=== PATIENT | female | born 1990 | race Caucasian/White ===

== ENCOUNTER 2021-10-07 23:05 | Emergency (ER) | payer OTHER, SELFPAY ==
[2021-10-07 23:49] VITALS: BP 139/89; PULSE 76; RESP 18; TEMP 36.6; O2SAT 99
--- NOTE | 2021-10-08 00:36 | DI.RAD.S_ITS ---
PROCEDURE: XR WRIST LT 2V INDICATIONS: known fx tingling thumb and index TECHNIQUE: Three views of the left wrist were obtained in overlying fiberglass cast, limiting assessment bony detail. COMPARISON: None. FINDINGS: Bones: Distal radial and ulnar styloid healing fractures are in noted. Evaluation is limited by overlying fiberglass cast. Scaphoid view: None obtained Soft tissues: No suspicious soft tissue calcifications. IMPRESSION: Healing distal radial ulnar styloid fractures. Evaluation is limited by overlying fiberglass cast Dictated by: Brian Núñez M.D. on 10/08/2021 at 1:17 Approved by: Brian Núñez M.D. on 10/08/2021 at 1:22
--- NOTE | 2021-10-08 00:36 | ED.UPPEXIN ---
HPI - Extremity Injury (Upper) General Chief Complaint: Extremity Injury, Upper Stated Complaint: hurt left wrist - tingling/numbness Time Seen by Provider: 10/08/21 00:27 Source: patient Mode of arrival: Ambulatory Limitations: no limitations History of Present Illness HPI narrative: Patient is a 31-year-old female who has a known recent left wrist fracture. She lives in [place] she fell a couple of weeks ago she has been seen by Orthopedics it has been casted. She even saw orthopedics prior to her travel they bivalved th cast. She states that for 1 minute head to hours now she has had some numbness and tingling in her left thumb and index finger. She has pain medication at. The cast actually does not feel too tight she is able to move fingers. He is worried that perhaps a bone movement. She has not had any injury. Review of Systems Review of Systems Narrative: GENERAL: Denies chills,fever HEENT: Denies throat pain RESPIRATORY: Denies dyspnea, cough, wheezing CARDIOVASCULAR: Denies chest pain, palpitations GASTROINTESTINAL: Denies nausea, vomiting MUSCULOSKELETAL: See HPI SKIN: No rash, no laceration, no pruritus NEUROLOGIC: Denies weakness, dizziness, headache, numbness 8 point review of systems is negative except for those stated above and HPI Patient History Social History Smoking Status: Never smoker Smoking Status: Never smoker alcohol intake frequency: a few times a month Substance Use Type: does not use Exam Initial Vital Signs Initial Vital Signs: Vital Signs Temperature 97.9 F 10/07/21 23:49 Pulse Rate 76 10/07/21 23:49 Respiratory Rate 18 10/07/21 23:49 Blood Pressure 139/89 10/07/21 23:49 Pulse Oximetry 99 10/07/21 23:49 GENERAL: Well-appearing, well-nourished and in no acute distress. CARDIOVASCULAR: peripheral pulses in tact, cap refill <2 sec RESPIRATORY: No respiratory distress, speaks in full sentences without difficulty EXTREMITIES: Normal range of motion, no clubbing or edema. Neurovascularly intact Left wrist cast is place it is bivalved it is loose I am able to stick my fingers in 8 she is able to move her finger is cap refill less than 2 seconds. NEUROLOGICAL: Cranial nerves II through XII grossly intact. Normal gait and speech. SKIN: Warm, dry, no petechiae, no rashes or lesions. Course Orders Ordered: ED Orders 10/08/21 00:36 XR wrist LT 2V Stat Vital Signs Vital signs: Vital Signs - 8 hr 10/07/21 23:49 Temperature 97.9 F Pulse Rate 76 Respiratory Rate 18 Blood Pressure 139/89 Pulse Oximetry 99 [facility] - Extremity Injury (Upper) Imaging Data Extremity x-ray #1: Radiologist's Impression: PROCEDURE:? XR WRIST LT 2V ? INDICATIONS: known fx tingling thumb and index ? TECHNIQUE:? Three views of the left wrist were obtained in overlying fiberglass cast, limiting assessment bony detail. ? COMPARISON:? None. ? FINDINGS:? ? Bones:? Distal radial and ulnar styloid healing fractures are in noted.? Evaluation is limited by overlying fiberglass cast. ? Scaphoid view:? None obtained ? Soft tissues:? No suspicious soft tissue calcifications.? ? IMPRESSION:? ? Healing distal radial ulnar styloid fractures.? Evaluation is limited by overlying fiberglass cast ? ? Dictated by: Brian Núñez M.D. on 10/08/2021 at 1:17 ? ? Approved by: Brian Núñez M.D. on 10/08/2021 at 1:22 ? [facility] Narrative Medical decision making narrative: Patient's cast is not tight. She certainly has no signs of compartment syndrome. She is able to move finger she has good cap refill there is no significant swelling. I am able to pull the cast part a little bit. X-ray shows healing fracture. She is reassured she actually has appointment with her orthopedic and 4 days when she returns home. Discharge Plan Departure Patient Disposition: Home Clinical Impression: Fracture of wrist Instructions: DI for Wrist Fracture Activity Restrictions/Additional Instructions: *You have been diagnosed with left wrist fracture *What to do: Elevate arm use sling as needed. Please follow-up with orthopedics next week as scheduled *Continue to take medications as directed *Follow up with Orthopedics as scheduled next week *Return to ER if you should have increasing pain numbness tingling or any new, worsening or concerning symptoms
== END 2021-10-08 01:35 | disposition home or self-care (01) ==
PROVIDERS: Emergency Provider Emergency Medicine
DX: S52.502A Unspecified fracture of the lower end of left radius, initial encounter for closed fracture (principal); S52.612A Displaced fracture of left ulna styloid process, initial encounter for closed fracture; W19.XXXA Unspecified fall, initial encounter
CPT/HCPCS: 73100; 99283